=== PATIENT | female | born 1980 | race Two or more races ===

== ENCOUNTER 2020-06-13 22:01 | Emergency (ER) | payer OTHER ==
[~2020-06-13] VITALS: Ht 170.2 cm; Wt 61.2 kg
--- NOTE | 2020-06-13 22:28 | NUR ---
Dr. Kaufman at bedside for MSE.
[2020-06-13] MEDS ORDERED: synthroid PO (22:32)
[2020-06-13] MEDS ORDERED: ONDANSETRON 4 MG/2 ML VIAL ONE (22:43)
[2020-06-13] MEDS ORDERED: HYDROMORPHONE 1 MG/1 ML DISP.SYRIN ONE (22:43)
[2020-06-13] MEDS ORDERED: IV NORMAL SALINE 1000 ML BAG IV ONE (22:45)
[2020-06-13] MEDS ORDERED: ONDANSETRON 4 MG/2 ML VIAL IV ONE (22:45)
[2020-06-13] MEDS ORDERED: HYDROMORPHONE 1 MG/1 ML DISP.SYRIN IV ONE (22:45)
[2020-06-13] MEDS ORDERED: HYDR-3974 PO (23:18)
[2020-06-13] MEDS ORDERED: CYCL10TA9 PO (23:18)
[2020-06-13] MEDS ORDERED: ONDA4TAB5 PO (23:18)
--- NOTE | 2020-06-13 23:30 | NUR ---
Patient is asleep, respirations even and unlabored.
--- NOTE | 2020-06-14 00:27 | NUR ---
Patient discharged to home in stable condition. Written and verbal after care instructions given. Patient verbalizes understanding of instructions. Stressed follow up or return to ER for worsening s/s.
[2020-06-14 00:28] VITALS: BP 114/63
== END 2020-06-14 00:28 | disposition home or self-care (01) ==
LOC: ER 22:08
DX: G44.209 Tension-type headache, unspecified, not intractable (principal); H53.149 Visual discomfort, unspecified; R11.0 Nausea; E03.9 Hypothyroidism, unspecified; Z79.890 Hormone replacement therapy
CPT/HCPCS: 96361; 96374; 96375; 99284; J1170; J2405; A4663; J7030